=== PATIENT | male | born 1980 ===

== ENCOUNTER → 2025-01-16 | Outpatient (REF) | payer OTHER ==
[2025-01-16 15:24] LABS: ALT/SGPT 17 U/L (7.0-40); AST/SGOT 24 U/L (<34); CALCIUM LEVEL 9.5 MG/DL (8.5-10.1); CARBON DIOXIDE LEVEL 30 MMOL/L (20-31); CHLORIDE LEVEL 103 MMOL/L (98-107); CHOLESTEROL LEVEL 160 MG/DL (<200); CHOLESTEROL RISK RATIO 2.38 (<5); CREATININE FOR GFR 1.13 MG/DL (0.70-1.30); ESTIMATED AVERAGE GLUCOSE 105.0 MG/DL (60-110); GLOMERULAR FILTRATION RATE 83.2 (>60); HEPATITIS B SURFACE ANTIBODY POSITIVE (POSITIVE); LDL CHOLESTEROL 72.6 MG/DL (<100); NON-HDL-C 93.0 MG/DL; POTASSIUM SERUM 4.4 MMOL/L (3.5-5.1); SODIUM LEVEL 142 MMOL/L (136-145); TOTAL 25(OH) VITAMIN D 26.0 NG/ML (20.0-100.0); TRIGLYCERIDES LEVEL 102 MG/DL (<150)
[2025-01-16 15:46] LABS: HIV 1&2 SCREEN NEGATIVE (NEGATIVE)
[2025-01-16 15:54] LABS: HEPATITIS C VIRUS ABY INDEX < 0.02 INDEX (<0.8)
== END ==
LOC: M LAB REF 14:11
PROVIDERS: ATTEND Student in an Organized Health Care Education/Training Program
DX: E55.9 Vitamin D deficiency, unspecified (principal); Z68.1 Body mass index [BMI] 19.9 or less, adult; Z11.3 Encounter for screening for infections with a predominantly sexual mode of transmission